=== PATIENT | female | born 1930 | race Caucasian/White ===

== ENCOUNTER → 2016-08-18 | Outpatient (CLI) | payer OTHER ==
[~2016-08-18] MED LIST: ADULT LOW DOSE81 MG PO; ASPIRIN EC81 M1 PO; ASPIRIN300 MG; B12INJ IM; CALCIUM 500 +1 EAC5 PO; CELEXA20 MG PO; CIPRO250 M2 PO; COZAAR100 MG PO; CRANBERRY 4001 EACH PO; CRANBERRY500 M1 PO; CYCLOGYL5 M1 OPHTHALMIC; DIOVAN320 MG PO; DUREZOL5 ML OPHTHALMIC; ENTOCORT EC3 MG PO; FERRO-TIME325 MG PO; FUROSEMIDE PO; GEMFIBROZIL 60600 MG PO; IMDUR 30 MG TAB30 M1 PO; IRON PO; LANTUS SUBQ; LANTUS100 UNIT/M SUBQ; LOFIBRA160 MG PO; LOPRESSOR25 PO; MULTIVITAMINS PO; NITROGLYCERIN0.4 MG SUBLING; NORVASC 5 MG TAB5 MG PO; OMEPRAZOLE 20 M20 M1 PO; OMEPRAZOLE20 M2 PO; OS-CAL 500+D C1 EACH PO; OXYBUTYNIN ER 55 M1 PO; PLAVIX 75 MG TA75 M1 PO; PROCTOFOAM-HC F10 GM TOP; PROZAC 20 MG20 M1 PO; SIMVASTATIN40 MG PO; TOPROL XL25 MG PO; TRAVATAN Z2.5 ML; TRAVATAN Z5 ML OPHTHALMIC; TRICOR145 MG PO; VITAMIN B-12 PO; VITAMIN D1000 UNI1 PO
== END ==
LOC: RAD 03:04
DX: Z12.31 Encounter for screening mammogram for malignant neoplasm of breast (principal)